=== PATIENT | male | born 1975 | race Caucasian/White ===

== ENCOUNTER 2020-02-28 11:37 | Outpatient (CLI) | payer MEDICARE, SELFPAY ==
--- NOTE | ~2020-02-28 | XR_ITS ---
EXAMINATION: XR foot LT min 3V, XR ankle LT min 3V EXAM DATE: 02/28/2020 12:40 (accession [id number]), 02/28/2020 12:39 (accession [id number]) INDICATION: chronic Left foot pain and ankle pain; states prior surgery 2011. TECHNIQUE: Left foot dorsoplantar, lateral and oblique projections obtained and reviewed. Left ankle frontal, lateral and oblique projections obtained and reviewed. There is no prior study for compari son. FINDINGS: There is some collapse of the left talar dome, moderate left ankle osteoarthritis. Uncertai n whether or not this is primary or secondary to prior injury. Left metatarsal bones unremarkable. T here is moderate hallux valgus. Joint spaces are maintained. There are no bony erosions identified. T here are no acute fractures identified. IMPRESSION: 1. Moderate left ankle arthritis with some collapse of the talar dome. 2. Moderate hallux valgus. Reviewed, dictated and finalized at location [facility] [employer] [employer] IMPRESSION: 1. Moderate left ankle arthritis with some collapse of the talar dome. 2. Moderate hallux valgus.
== END 2020-02-28 11:38 ==
PROVIDERS: PCP Internal Medicine; Visit Provider Nurse Practitioner Adult Health
DX: M20.12 Hallux valgus (acquired), left foot (principal); M19.072 Primary osteoarthritis, left ankle and foot
CPT/HCPCS: 73610; 73630